=== PATIENT | female | born 1945 | race Caucasian/White ===

== ENCOUNTER 2019-06-17 10:00 | Emergency (ER) | payer MEDICARE, OTHER, SELFPAY ==
[2019-06-17 10:01] VITALS: BP 156/84; PULSE 66; RESP 18; TEMP 36.6; O2SAT 100; BMI 24.3
--- NOTE | 2019-06-17 10:48 | CT_ITS ---
STUDY: CT BRAIN WITHOUT CONTRAST REASON FOR EXAM: Female, 74 years old. WREN AND ELEV. BP. RADIATION DOSAGE (If Supplied By Facility): CTDIvol = ( 44.99 ) mGy, DLP = ( 779.24 ) mGycm TECHNIQUE: Transaxial CT imaging of the brain was performed without administration of intravenous contrast material. Individualized dose optimization techniques were used for this CT. COMPARISON: No relevant priors. FINDINGS: Normal soft tissue structures. Normal calvarium. There is mild cerebral atrophy with widening of the extra-axial spaces and ventricular dilatation. Normal white matter tracts of the cerebral hemispheres. Normal basal ganglia and thalami. Normal brainstem. Normal cerebellum. There is no intracranial hemorrhage. There are no findings of an acute ischemic infarction. Minimal mucosal thickening along the anterior-inferior aspect of the right maxillary sinus. CT/Brain/Head without Contrast IMPRESSION: Chronic involutional changes of the brain. Minimal mucosal thickening along the anterior inferior aspect of the right maxillary sinus. Electronically Signed: Sang Boyd, at 12:52 EST , Service support ,
--- NOTE | 2019-06-17 10:48 | EKG12_ITS ---
Test Reason : HTN Blood Pressure : / mmHG Vent. Rate : 056 BPM Atrial Rate : 056 BPM P-R Int : 158 ms QRS Dur : 070 ms QT Int : 434 ms P-R-T Axes : 058 044 040 degrees QTc Int : 418 ms Sinus bradycardia with sinus arrhythmia Otherwise normal ECG Confirmed by DELISA CASTANEDA, MEREDITH ([id number]), health editor AIDA BRYANT ([id number]) on 06/20/2019 3:35:42 PM Referred By: HAL Confirmed By:MEREDITH HERCULES MD
--- NOTE | 2019-06-17 10:49 | RAD_ITS ---
STUDY: X-RAY CHEST REASON FOR EXAM: Female, 74 years old. PT WITH ELEVATED BP And headache TECHNIQUE: Single AP portable view of the chest. COMPARISON: None. FINDINGS: Hyperinflation. Scattered calcified granulomas. There is no demonstrated pleural abnormality. Normal size heart. Normal mediastinum and logan. Normal visualized pulmonary arteries. There is atherosclerotic calcification of the aortic arch with tortuosity. Normal visualized thoracic spine. Normal visualized ribs, clavicles, and shoulders. There is no demonstrated abnormality of the visualized soft tissue structures of the upper abdomen. RAD/Chest 1 View (Portable) IMPRESSION: Hyperinflation. No acute abnormality is seen. Electronically Signed: Sang Boyd, at 11:41 EST , Service support ,
[2019-06-17 11:14] LABS: Absolute Lymphocyte Count 0.96 X10^3/uL (0.83-4.51); Absolute Neutrophil Count 5.8 X10^3/uL (2.0-7.7); Basophil# 0.02 X10^3/uL; Basophil% 0.3 % (0-1); Eosinophil# 0.03 X10^3/uL; Eosinophils% 0.4 % (0-5); Hematocrit 41.4 % (37-47); Hemoglobin 13.3 g/dL (12.0-15.0); Lymphocyte # 0.96 X10^3/ul (4.0); Lymphocyte % 13.5 % (19-41); Mean Corp Hgb Conc 32.1 g/dL (32-36); Mean Corpuscular Hgb 29.8 pg (27.0-32.0); Mean Corpuscular Volume 92.6 fL (81-99); Mean Platelet Vol. 10.6 fl (6.2-12.0); Monocyte# 0.23 X10^3/uL; Monocyte% 3.2 % (0-10); NRBC Flagged by Analyzer 0 % (0-5); Neutrophil # 5.83 X10^3/uL (2.7-7.7); Neutrophil % 82.2 % (47-70); Platelet Count 220 K/mm3 (150-450); RBC Distribution Width CV 12.8 % (11.6-14.6); RBC Distribution Width SD 43.8 fl (35.1-43.9); Red Blood Count 4.47 M/mm3 (4.2-5.4); White Blood Count 7.1 K/mm3 (4.4-11.0)
[2019-06-17 11:24] VITALS: BP 131/70; PULSE 55; RESP 20; O2SAT 100
--- NOTE | 2019-06-17 11:25 | ED.VIS.GEN ---
History of Present Illness Chief Complaint: Hypertension Informant: Patient Onset: Today Context: Gradual Onset Narrative: Patient is a 74-year-old female with history of hypertension presenting with elevated blood pressure readings at home and headache. Patient states she woke up around 5 AM and noticed that she had a headache. Patient did take 2 Tylenol at that time. She also checked her blood pressure and found that it was elevated between 177 and 193 systolic. Patient became concerned that her high blood pressure might be associated with her headache so she came to the emergency room. She notes her headache is actually started to resolve and her blood pressure was starting to improve before she left to come to the hospital. She denies any vision changes, speech changes, chest pain, shortness of breath or urinary symptoms. She does no associated fever or chills. She did have some nausea this morning but no vomiting. States her nausea has resolved. She did take her morning blood pressure medications. States she felt fine when she went to bed last night. She denies any falls or head injuries. She denies any other complaints at this time. Past Medical History - Allergies and Home Meds Allergies/Adverse Reactions: Allergies primidone Adverse Reaction (Verified 06/17/19 11:25) Vomiting Primary Care Physician: Campbell Jimenez III, MD [Primary Care Provider] - Past Medical History: - - Hypertension, hyperlipidemia Surgical History: noncontributory Smoking Status: Never smoker Review of Systems General: Denies: Chills, Fever, Sweats Eyes: Denies: Visual changes - bilaterally, Diplopia ENT: Denies: Rhinorrhea, Sore throat Cardiovascular: Denies: Chest pain, Palpitations Respiratory: Denies: Dyspnea, Cough, Dyspnea on exertion Gastrointestinal: Reports: Nausea. Denies: Abdominal pain, Vomiting, Diarrhea, Melena, Hematochezia Genitourinary: Denies: Dysuria, Hematuria, Frequency Musculoskeletal: Denies: Back pain, Extremity Pain Skin: Denies: Rash, Wounds Neurological: Reports: Headache. Denies: Weakness, Numbness Physical Exam Vital Signs/Narrative: Vital Signs Temp Pulse Resp BP Pulse Ox 06/17/19 11:24 55 L 20 H 131/70 H 100 06/17/19 10:01 97.9 F 66 18 156/84 H 100 Inital Vital Signs reviewed: Yes General: Well nourished, Well developed, No Acute Distress Head: Normocephalic, Atraumatic Eyes: Perrl, EOMI ENT: Moist mucous membranes, No rhinorrhea Neck: Supple, Nontender Cardiovascular: Regular rate, Regular rhythm, No murmurs Respiratory: No distress, CTA bilaterally, Chest nontender Abdomen: Soft, Nontender, Nondistended, Normal bowel sounds. Negative for: Guarding, Rebound tenderness Back: Nontender, Normal Inspection Extremities: Nontender, No edema Skin: Normal color, No rash Neurological: Alert, Oriented x3, Cranial nerves II-XII grossly intact, Normal Strength, Normal Sensation, - - Normal coordination, no truncal ataxia, normal [id number]. Negative for: Confused, Parasthesia, Weakness, Left side facial droop, Right side facial droop Psychological: Normal affect, Normal Mood Diagnostic/Tx/Re-eval Clinical Impression(s) from Imaging Studies Brain CT 06/17/19 10:48 IMPRESSION: Chronic involutional changes of the brain. Minimal mucosal thickening along the anterior inferior aspect of the right maxillary sinus. Electronically Signed: Sang Boyd, at 12:52 EST , Service support , Chest X-Ray 06/17/19 10:49 IMPRESSION: Hyperinflation. No acute abnormality is seen. Electronically Signed: Sang Boyd, at 11:41 EST , Service support , Laboratory Data 06/17/19 06/17/19 11:05 11:05 WBC 7.1 RBC 4.47 Hgb 13.3 Hct 41.4 MCV 92.6 MCH 29.8 MCHC 32.1 RDW Std Deviation 43.8 RDW Coeff of Bharath 12.8 Plt Count 220 MPV 10.6 Immature Gran % (Auto) 0.400 Neut % (Auto) 82.2 H Lymph % (Auto) 13.5 L [place] % (Auto) 3.2 Eos % (Auto) 0.4 Baso % (Auto) 0.3 Absolute Neuts (auto) 5.8 Absolute Lymphs (auto) 0.96 Nucleated RBC % 0 Sodium 141 Potassium 3.9 Chloride 110 H Carbon Dioxide 27.0 Anion Gap 4 L BUN 27 H Creatinine 1.16 H Estim Creat Clear Calc 34.66 Est GFR (MDRD) Af Amer 59 L Est GFR (MDRD) Non-Af 48 L BUN/Creatinine Ratio 23.3 H Glucose 114 H Calcium 9.6 Troponin I < 0.015 - Rhythm Strip Rhythm Strip: Sinus Rhythm Rate: 56 Ectopy: None - EKG Initial EKG Interpretation: Sinus Bradycardia, - - Sinus bradycardia at a rate of 56 Normal intervals Normal axis Sinus arrhythmia present Normal ST segments - Medical Decision Making Patient evaluated for high blood pressure and headache. I do not think these are specifically related. I do not think this is a hypertensive emergency. Patient's blood pressure improved significantly without intervention in the emergency room. Her headache was already improving when she came to the emergency room with Tylenol. Creatinine is normal, troponin is normal and CT brain does not show any acute intracranial process. I think patient stable for outpatient follow-up. She will continue to take her home blood pressure medications. I do not think she needs any medication adjustments at this time. Patient is instructed on the proper way to take her blood pressure at home. Patient is counseled on signs and symptoms requiring return to the emergency room. Patient verbalizes agreement and understand this plan. Patient discharged home in stable and improved condition. ED Disposition - Plan for ED Patient: Disposition: Home or Assisted Living Diagnosis: Headache Instructions: HYPERTENSION, Established Referrals: Campbell Jimenez III, MD [Primary Care Provider] -
[2019-06-17 11:33] LABS: Anion Gap 4 (5-15); BUN 27 mg/dL (7-18); BUN/Creat Ratio 23.3 RATIO (10-20); Calcium,Total 9.6 mg/dL (8.5-10.1); Chloride 110 mmol/L (98-107); Creatinine, Serum 1.16 mg/dL (0.55-1.02); EST Glomerular Filtration Rate 48 mL/min (>60); Est Glom Filt Rate - Afr Amer 59 mL/min (>60); Estimated Creatinine Clearance 34.66 ml/min; Glucose 114 mg/dL (74-106); Potassium 3.9 mmol/L (3.5-5.1); Sodium Level 141 mmol/L (136-145)
[2019-06-17 13:16] VITALS: BP 116/58; PULSE 54; RESP 16; O2SAT 100
[2019-06-17 13:46] VITALS: BP 129/61; PULSE 57; RESP 15; O2SAT 98
== END 2019-06-17 13:51 | disposition home or self-care (01) ==
PROVIDERS: Emergency Provider Emergency Medicine; PCP Family Medicine
DX: R51 Headache (principal); I10 Essential (primary) hypertension; E78.5 Hyperlipidemia, unspecified; R00.1 Bradycardia, unspecified; Z79.82 Long term (current) use of aspirin; Z79.899 Other long term (current) drug therapy
CPT/HCPCS: 70450; 71045; 80048; 84484; 85025; 93005; 99284; A4216

== ENCOUNTER → 2020-01-04 | Outpatient (CLI) | payer MEDICARE, OTHER, SELFPAY | END | disposition home or self-care (01) | LOC: LABSPEC 12:15 | PROVIDERS: PCP Family Medicine; Referring Provider Family Medicine; Visit Provider Family Medicine | DX: Z03.818 Encounter for observation for suspected exposure to other biological agents ruled out (principal); Z11.59 Encounter for screening for other viral diseases | CPT/HCPCS: 87635; U0003 ==

== ENCOUNTER → 2020-01-12 | Outpatient (CLI) | payer MEDICARE, OTHER, SELFPAY | END | disposition home or self-care (01) | LOC: LABSPEC 13:17 | PROVIDERS: Visit Provider Family Medicine | DX: Z03.818 Encounter for observation for suspected exposure to other biological agents ruled out (principal); Z11.59 Encounter for screening for other viral diseases | CPT/HCPCS: 87635; U0003 ==

== ENCOUNTER → 2020-01-26 | Outpatient (CLI) | payer MEDICARE, SELFPAY | END | disposition home or self-care (01) | LOC: LABSPEC 12:18 | PROVIDERS: Referring Provider Family Medicine; Visit Provider Family Medicine | DX: Z03.818 Encounter for observation for suspected exposure to other biological agents ruled out (principal); Z11.59 Encounter for screening for other viral diseases | CPT/HCPCS: 87635; U0003 ==

== ENCOUNTER → 2020-02-09 | Outpatient (CLI) | payer MEDICARE, SELFPAY | END | disposition home or self-care (01) | LOC: LABSPEC 10:30 | PROVIDERS: Referring Provider Family Medicine; Visit Provider Family Medicine | DX: Z03.818 Encounter for observation for suspected exposure to other biological agents ruled out (principal) | CPT/HCPCS: 87635; U0003 ==

== ENCOUNTER → 2020-02-23 | Outpatient (CLI) | payer MEDICARE, SELFPAY | END | disposition home or self-care (01) | LOC: LABSPEC 12:20 | PROVIDERS: Referring Provider Family Medicine; Visit Provider Family Medicine | DX: Z03.818 Encounter for observation for suspected exposure to other biological agents ruled out (principal) | CPT/HCPCS: 87635; U0003 ==

== ENCOUNTER 2023-12-27 11:39 | Emergency (ER) | payer MEDICARE, SELFPAY ==
[2023-12-27 11:40] VITALS: BP 169/74; PULSE 79; RESP 16; TEMP 36.4; O2SAT 100; BMI 23.3
--- NOTE | 2023-12-27 12:51 | CT_ITS ---
STUDY: CT BRAIN WITHOUT CONTRAST REASON FOR EXAM: Female, 78 years old. Dizziness Individualized dose optimization techniques were used for this CT. TECHNIQUE: Transaxial CT imaging of the brain was performed without administration of intravenous contrast material. COMPARISON: 06.17.19 FINDINGS: There are calcifications around the carotid artery. These are noted in the cavernous carotid arteries. Normal calvarium. Normal soft tissues. Normal size ventricles and extra-axial spaces for the patient''s age. There are areas of decreased attenuation within the white matter tracts of the supratentorial brain, consistent with microvascular disease changes. Normal basal ganglia and thalami. Normal brainstem. There is mild cerebellar atrophy. There is no intracranial hemorrhage. There are no findings of an acute ischemic infarction. There is mucoperiosteal inflammatory disease of the paranasal sinuses consistent with mild chronic sinusitis. ASPECTS Score for Acute Strokes: 01/20 CT/Brain/Head without Contrast IMPRESSION: There are no acute findings. Electronically Signed: William Morrissey MD at 14:54 EDT ,
[2023-12-27] MEDS: 0.9% Normal Saline (500mL Bag) 500 ML 999 ML IV (13:17)
--- NOTE | 2023-12-27 13:23 | EX.ED.DYSGE1 ---
HPI History of Present Illness Chief Complaint: Dizziness Narrative Narrative: Chief complaint and HPI: Lightheadedness and hypertension. Patient is a 78-year-old female with history of hypertension and high cholesterol who presents for evaluation of hypertension and lightheadedness. Patient states since Thursday she has been having elevated blood pressures. She states that she has been checking them frequently at home which is making her anxious. She states she followed up with her PCP on Thursday who increased her lisinopril dose to 20 mg daily. Patient states that she had a episode of lightheadedness today. She checked her blood pressure and it was elevated which is why she presents for evaluation. She denies any fever, chills, chest pain, shortness of breath, abdominal pain, nausea, vomiting, numbness/tingling, weakness, difficulty speaking, neurological deficit. She denies lightheadedness currently. Review of systems: See HPI Medications: As listed on the chart Allergies: As listed on the chart PFSH: Per chart Vital signs: As listed on the chart. Reviewed. Physical exam: Gen: A&O x3, NAD Head: Normocephalic, atraumatic Eyes: No sclera icterus, conjunctiva clear, PERRL, EOMI ENT: Moist mucous membranes Neck: Trachea midline, No JVD CV: RRR, no murmurs, no peripheral edema Resp: Lungs CTA BL, no w/r/c GI: Abd soft, non-distended, non-tender, no r/r/g Musc: Full ROM, no deformity, strength plus 5 out of 5 in all extremities Skin: Warm, dry Neuro: Alert, oriented, grossly intact, sensation intact Psych: Cooperative, appropriate mood and affect EKG: Interpreted by me/EM physician: EKG shows normal sinus rhythm without any acute ischemic changes. Heart rate 63. Diagnostic: Interpreted by me/EM physician: 1 view chest x-ray without pneumonia, effusion, pneumothorax PFSH PFSH Home Medications ?Medication ?Instructions ?Recorded ?Last Taken ?Type Calcium (Elemental) 1 tab PO DAILY 01/28/14 Unknown History Lisinopril 10 mg PO DAILY 01/28/14 Unknown History Simvastatin 20 mg PO QHS 01/28/14 Unknown History aspirin 81 mg chewable tablet 81 mg PO DAILY@0800 01/28/14 Unknown History Allergy/AdvReac Type Severity Reaction Status Date / Time primidone AdvReac Vomiting Verified 12/27/23 11:40 Social History Smoking Status: Never smoker EXAM Physical Exam Const Vital Signs: 12/27/23 11:40 12/27/23 12:50 12/27/23 13:39 Temperature 97.5 F L Temperature Source Temporal Pulse Rate 79 65 Pulse Rate [Lying] Pulse Rate [Sitting (for 1 minute prior to obtaining)] Pulse Rate [Standing (for 1 minute prior to obtaining)] Respiratory Rate 16 14 Blood Pressure 169/74 H 117/78 Blood Pressure [Lying] Blood Pressure [Sitting (for 1 minute prior to obtaining)] Blood Pressure [Standing (for 1 minute prior to obtaining)] Blood Pressure Mean 105 91 Blood Pressure Mean [Lying] Blood Pressure Mean [Sitting (for 1 minute prior to obtaining)] Blood Pressure Mean [Standing (for 1 minute prior to obtaining)] Pulse Ox 100 Oxygen Delivery Method Room Air Room Air 12/27/23 14:38 Temperature Temperature Source Pulse Rate Pulse Rate [Lying] 62 Pulse Rate [Sitting (for 1 minute prior to obtaining)] 69 Pulse Rate [Standing (for 1 minute prior to obtaining)] 67 Respiratory Rate Blood Pressure Blood Pressure [Lying] 144/63 H Blood Pressure [Sitting (for 1 minute prior to obtaining)] 132/85 H Blood Pressure [Standing (for 1 minute prior to obtaining)] 136/68 H Blood Pressure Mean Blood Pressure Mean [Lying] 90 Blood Pressure Mean [Sitting (for 1 minute prior to obtaining)] 100 Blood Pressure Mean [Standing (for 1 minute prior to obtaining)] 90 Pulse Ox Oxygen Delivery Method MDM MDM MDM Narrative Medical decision making narrative: 78-year-old female with history of HTN and HLD presents for evaluation of intermittent hypertension as well as an episode of lightheadedness. Patient currently not lightheaded. Patient recently followed up with her PCP and had her lisinopril changed for hypertension. On presentation vitals are stable other than mild hypertension with a blood pressure 169/74. Differential diagnosis includes but is not limited to hypertension urgency, hypertensive emergency, dehydration, UTI, electrolyte abnormality, CAD. Low suspicion for PE, TIA/CVA. NS old bolus ordered. Cardiac workup including CT head and UA. EKG and chest x-ray reviewed. See above. CBC unremarkable. BMP shows mild hypokalemia at 3.4. Patient has renal insufficiency with a creatinine of 1.28 however on previous labs her creatinine is anywhere between 1.3-1.16. Troponin unremarkable x 2. D-dimer unremarkable. UA negative for UTI. CT head without any acute intracranial abnormality. On reexamination, patient is still asymptomatic. Blood pressure has improved. She ambulated in the emergency department without any symptoms or recurrent lightheadedness. At this point in time, unclear etiology for patient's symptoms. May be secondary to hypertensive urgency versus side effect from increase in her antihypertensive. Patient and family members were updated of all the results and the plan. Patient is to return back to the ED if symptoms recur or worsen. Follow-up with her PCP. She confirmed understanding of the plan. Patient was educated that she needs to check her blood pressures periodically at home. Impression: 1. Episodic lightheadedness 2. Hypertension Lab Data Labs: Laboratory Results - last 24 hr 12/27/23 12/27/23 12/27/23 13:15 14:15 14:50 WBC 9.2 RBC 4.70 Hgb 14.0 Hct 43.6 MCV 92.8 MCH 29.8 MCHC 32.1 RDW Std Deviation 42.5 RDW Coeff of Bharath 12.4 Plt Count 283 MPV 11.2 Immature Gran % (Auto) 0.300 Neut % (Auto) 70.9 H Lymph % (Auto) 19.8 [place] % (Auto) 7.5 Eos % (Auto) 1.0 Baso % (Auto) 0.5 Absolute Neuts (auto) 6.5 Absolute Lymphs (auto) 1.81 Nucleated RBC % 0 D-Dimer Quant (PE/DVT) 0.42 Sodium 137 Potassium 3.4 L Chloride 101 Carbon Dioxide 29.0 Anion Gap 7 BUN 19 H Creatinine 1.28 H Estim Creat Clear Calc 29.48 Est GFR (MDRD) Af Amer 52 L Est GFR (MDRD) Non-Af 43 L BUN/Creatinine Ratio 14.8 Glucose 118 H Calcium 9.8 Troponin I High Sens 6 B-Natriuretic Peptide 84.4 Urine Color Yellow Urine Clarity Clear Urine pH 7.0 Ur Specific [place] 1.005 Urine Protein Negative Urine Glucose (UA) Normal Urine Ketones Negative Urine Occult Blood Negative Urine Nitrite Negative Urine Bilirubin Negative Urine Urobilinogen Normal Ur Leukocyte Esterase Negative Urine RBC 0 SEEN Urine WBC 0 SEEN Ur Squamous Epith Cells 0 SEEN Urine Bacteria 0 SEEN Urine Mucus 0 SEEN 12/27/23 15:50 WBC RBC Hgb Hct MCV MCH MCHC RDW Std Deviation RDW Coeff of Bharath Plt Count MPV Immature Gran % (Auto) Neut % (Auto) Lymph % (Auto) [place] % (Auto) Eos % (Auto) Baso % (Auto) Absolute Neuts (auto) Absolute Lymphs (auto) Nucleated RBC % D-Dimer Quant (PE/DVT) Sodium Potassium Chloride Carbon Dioxide Anion Gap BUN Creatinine Estim Creat Clear Calc Est GFR (MDRD) Af Amer Est GFR (MDRD) Non-Af BUN/Creatinine Ratio Glucose Calcium Troponin I High Sens 6 B-Natriuretic Peptide Urine Color Urine Clarity Urine pH Ur Specific [place] Urine Protein Urine Glucose (UA) Urine Ketones Urine Occult Blood Urine Nitrite Urine Bilirubin Urine Urobilinogen Ur Leukocyte Esterase Urine RBC Urine WBC Ur Squamous Epith Cells Urine Bacteria Urine Mucus Radiography Diagnostic Testing: Clinical Impression(s) from Imaging Studies Brain CT 12/27/23 12:51 IMPRESSION: There are no acute findings. Electronically Signed: William Morrissey MD at 14:54 EDT Reading Location ID and State: [facility] / [place] , Service support , Chest X-Ray 12/27/23 13:35 IMPRESSION: There are no acute findings. Electronically Signed: William Morrissey MD at 14:55 EDT , Discharge Plan Triage Chief Complaint: Dizziness ED Provider: Ramses Duran Dx/Rx/DC Orders Clinical Impression: Episodic lightheadedness, Hypertension Instructions: ED Dizziness, Uncertain Cause, ED Hypertension, Established Prescriptions: No Action aspirin 81 MG tablet,chewable 81 mg PO DAILY@0800 Calcium (Elemental) 1 tab PO DAILY Lisinopril 10 mg PO DAILY Simvastatin 20 mg PO QHS Primary Care Provider: Amanda Helton Referrals: Amanda Helton MD [Primary Care Provider] - 3-5 Days Print Language: Slovak Disposition Disposition: Home, Self Care Discharge Date/Time: 12/27/23 16:43
[2023-12-27 13:25] LABS: Absolute Lymphocyte Count 1.81 X10^3/uL (0.83-4.51); Absolute Neutrophil Count 6.5 X10^3/uL (2.0-7.7); Basophil# 0.05 X10^3/uL; Basophil% 0.5 % (0-1); Eosinophil# 0.09 X10^3/uL; Hematocrit 43.6 % (37-47); Lymphocyte # 1.81 X10^3/ul (0.83-4.51); Lymphocyte % 19.8 % (19-41); Mean Corp Hgb Conc 32.1 g/dL (32-36); Mean Corpuscular Hgb 29.8 pg (27.0-32.0); Mean Corpuscular Volume 92.8 fL (81-99); Mean Platelet Vol. 11.2 fl (6.2-12.0); Monocyte# 0.69 X10^3/uL; Monocyte% 7.5 % (0-10); NRBC Flagged by Analyzer 0 % (0-5); Neutrophil # 6.49 X10^3/uL (2.7-7.7); Neutrophil % 70.9 % (47-70); Platelet Count 283 K/mm3 (150-450); RBC Distribution Width CV 12.4 % (11.6-14.6); RBC Distribution Width SD 42.5 fl (35.1-43.9); White Blood Count 9.2 K/mm3 (4.4-11.0)
--- NOTE | 2023-12-27 13:35 | RAD_ITS ---
STUDY: XR Chest 1 View 12/27/2023 1:36 PM REASON FOR EXAM: Female, 78 years old. chest pain COMPARISON: 3.6.20 TECHNIQUE: XR Chest 1 View FINDINGS: There is no demonstrated pleural abnormality. Normal heart size. Normal mediastinum. Normal logan. Prominent appearing increased interstitial lung markings. Normal visualized pulmonary arteries. There is atherosclerotic calcification of the aortic arch with tortuosity. There are diffuse degenerative changes of the visualized thoracic spine. There is degenerative osteoarthritis of the bilateral shoulders. There are no acute findings of the upper abdomen. RAD/Chest 1 View (Portable) IMPRESSION: There are no acute findings. Electronically Signed: William Morrissey MD at 14:55 EDT ,
[2023-12-27 13:39] VITALS: BP 117/78; PULSE 65; RESP 14
[2023-12-27 13:44] LABS: Anion Gap 7 (5-15); BUN 19 mg/dL (7-18); BUN/Creat Ratio 14.8 RATIO (10-20); Calcium,Total 9.8 mg/dL (8.5-10.1); Chloride 101 mmol/L (98-107); Creatinine, Serum 1.28 mg/dL (0.55-1.02); EST Glomerular Filtration Rate 43 mL/min (>60); Est Glom Filt Rate - Afr Amer 52 mL/min (>60); Estimated Creatinine Clearance 29.48 ml/min; Glucose 118 mg/dL (74-106); Potassium 3.4 mmol/L (3.5-5.1); Sodium Level 137 mmol/L (136-145); Troponin-I HS (w/2H Reflex) 6 pg/mL (3.0-54.0)
[2023-12-27 13:59] LABS: BNP,B-Type NATRIURETIC PEPTIDE 84.4 pg/mL (0-100)
[2023-12-27 14:38] VITALS: BP 132/85; BP 136/68; BP 144/63; PULSE 62; PULSE 67; PULSE 69
[2023-12-27 14:42] LABS: D-Dimer Quantitative (DVT/PE) 0.42 FEU/ug/m (0.27-0.49)
[2023-12-27 15:02] LABS: Bacteria 0 SEEN /hpf (None Seen); Mucous, Urine 0 SEEN /hpf (<or=2+); Red Blood Cells-Urine 0 SEEN /hpf (0-5); Squamous Epithelial Cells - UA 0 SEEN /hpf (5-10); White Blood Cells 0 SEEN /hpf (0-5)
[2023-12-27 15:12] LABS: Color, Urine Yellow (Yellow); Glucose, Dipstick Normal (Normal); Ketone-Dipstick Negative (Negative); Leukocyte Esterase-Dipstick Negative /ul (Negative); Nitrite-Dipstick Negative (Negative); Occult Blood-Urine Negative /ul (Negative); Protein-Dipstick Negative (Negative); Specific Gravity, Urine 1.005 (1.002-1.030); Urine Bilirubin Dipstick Negative (Negative); Urine Clarity Clear (Clear); Urine Urobilinogen Normal (Normal)
[2023-12-27 15:22] LABS: Reflex Troponin-HS? (from REC) Y
[2023-12-27 16:19] LABS: Troponin-I HS 6 pg/mL (3.0-54.0)
== END 2023-12-27 16:43 | disposition home or self-care (01) ==
PROVIDERS: Emergency Provider Surgery; PCP Internal Medicine; Visit Provider Surgery
DX: R42 Dizziness and giddiness (principal); I10 Essential (primary) hypertension; E87.6 Hypokalemia; E78.00 Pure hypercholesterolemia, unspecified; Z79.82 Long term (current) use of aspirin; Z79.899 Other long term (current) drug therapy
CPT/HCPCS: 70450; 71045; 80048; 81001; 83880; 84484; 85025; 85379; 93005; 96360; 99285; J7030; A4216